=== PATIENT | female | born 1995 | race Caucasian/White ===

== ENCOUNTER 2017-09-10 08:13 | Outpatient (CLI) | payer SELFPAY ==
--- NOTE | 2017-09-11 08:00 | Fluoroscopy Report ---
HYSTEROSALPINGOGRAM: History: Infertility. Informed consent was obtained. Standard sterile prep and drape was employed. The catheter tip was subsequently placed within the uterine lumen via cervix. The small balloon on the tip of the catheter was inflated. Retrograde injection opacifies normal appearing uterine lumen. No congenital abnormality or filling defect. There is normal filling of the right fallopian tubule with free spillage of contrast agent into the pelvis on the right side. The left fallopian tubule is slightly abnormal. The interstitial segment and isthmic segment of the left fallopian tubule are within normal limits. There is mild dilatation and tortuosity of the ampullary segment of the left fallopian tubule suggestive of mild left hydrosalpinx. No obvious filling defect is identified within the left tubule. I did not clearly see free spillage of contrast into the pelvis on the left side. IMPRESSION: Normal uterine cavity and right fallopian tubule. Abnormal left fallopian tubule. Mild left hydrosalpinx is suspected. I did not clearly see free spillage of the contrast agent from the left tubule into the pelvis suggesting occlusion or possibly adhesions.
== END 2017-09-10 08:14 | disposition home or self-care (01) ==
LOC: FLUORO 08:13
PROVIDERS: ATTEND Obstetrics & Gynecology
DX: N97.9 Female infertility, unspecified (principal)
CPT/HCPCS: 58340; 74740; Q9967